=== PATIENT | female | born 1985 | race Hispanic/Latino ===

== ENCOUNTER 2022-01-23 09:54 | Outpatient (CLI) | payer BC ==
[2022-01-23 19:03] LABS: SARS-CoV-2 PCR by NAA Not Detected (NotDetected)
== END 2022-01-23 09:55 | disposition home or self-care (01) ==
LOC: CSHLAB 09:54
PROVIDERS: ATTEND Obstetrics & Gynecology
DX: Z20.822 Contact with and (suspected) exposure to COVID-19 (principal); O09.819 Supervision of pregnancy resulting from assisted reproductive technology, unspecified trimester
CPT/HCPCS: U0003; U0005